=== PATIENT | male | born 1980 | race Caucasian/White ===

== ENCOUNTER 2023-09-28 13:46 | Emergency (ER) | payer OTHER, SELFPAY ==
[2023-09-28 13:59] VITALS: BP 153/104; PULSE 93; RESP 18; TEMP 37.1; O2SAT 95; BMI 38.6
== END 2023-09-28 14:05 | disposition left against medical advice (07) ==
LOC: ER 14:04
PROVIDERS: Emergency Provider Emergency Medicine Emergency Medical Services; PCP Nurse Practitioner Family
DX: Z53.21 Procedure and treatment not carried out due to patient leaving prior to being seen by health care provider (principal)
CPT/HCPCS: 80053; 83605; 83690

== ENCOUNTER 2023-12-29 18:55 | Emergency (ER) | payer OTHER, SELFPAY ==
[2023-12-29 18:58] VITALS: BP 154/95; PULSE 85; TEMP 37.1; O2SAT 97; BMI 39.9
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
--- NOTE | 2023-12-29 19:05 | XR_ITS ---
[address] [address] Patient Name: PLACIDO MAX MRN: [id number] date: 1980 Sex: M Assigned Patient Location: ER Current Patient Location: ER Accession/Order Number: [id number] Exam Date: 12/29/2023 19:28 Report Date: 12/29/2023 20:12 At the request of: ZAYNAB MORENO Procedure: XR chest 2V EXAM: XR chest 2V HISTORY: cough COMPARISON: None. TECHNIQUE: PA and lateral chest FINDINGS: No pneumothorax, pleural effusion or consolidation. Normal heart size. No acute osseous abnormality. XR/XR chest 2V IMPRESSION: No acute cardiopulmonary process. Electronically authenticated by: ALLISON HERR Date: 12/29/2023 20:12
--- NOTE | 2023-12-29 19:26 | ED_ITS ---
HPI - URI/Sore Throat General Chief Complaint: Upper Respiratory Infection Stated Complaint: Upper Respiratory Infection Time Seen by Provider: 12/29/23 18:57 Source: patient History of Present Illness HPI Narrative: Patient is a 43-year-old male who presents to the emergency department for continued upper respiratory symptoms. He states he developed nasal congestion, body aches, cough and chest congestion over 2 weeks ago. He was placed on antibiotics by urgent care with a steroid dose daily for 7 days. He states he felt slightly better for a day and then had a return of his symptoms. He saw urgent care yesterday and was given an albuterol inhaler and a second course of antibiotics. He states he continues to have intermittent fevers in the mornings, as high as 101.0 Fahrenheit. He has no significant sputum production, hemoptysis. He has had diarrhea. No sick contacts in the home. He presents to the ER today because he feels his symptoms have not improved. He does not smoke. Related Data Home Medications ?Medication ?Instructions ?Recorded ?Confirmed albuterol sulfate 90 mcg/actuation 2 puff inhalation Q4H PRN 12/29/23 12/29/23 aerosol inhaler shortness of breath or wheezing amoxicillin 875 mg tablet 875 mg PO BID 12/29/23 12/29/23 sertraline 50 mg tablet 50 mg PO DAILY 12/29/23 12/29/23 tizanidine 4 mg tablet 4 mg PO QPM 12/29/23 12/29/23 Previous Rx's ?Medication ?Instructions ?Recorded fhtwvggvkkpttja-sxzyjdpgfemvitt-KK 10 ml PO Q6H PRN cold symptoms 12/29/23 2 mg-30 mg-10 mg/5 mL oral syrup #200 mL (Bromfed DM) ondansetron 4 mg disintegrating 4 mg PO Q6H PRN nausea and 12/29/23 tablet vomiting #12 tabs Allergies Allergy/AdvReac Type Severity Reaction Status Date / Time No Known Drug Allergies Allergy Verified 09/28/23 14:02 Review of Systems ROS Constitutional Reports: fever; Denies: chills Ears, nose, mouth, and throat Reports: nasal congestion; Denies: throat pain Cardiovascular Denies: chest pain Respiratory Reports: cough; Denies: shortness of breath Gastrointestinal Reports: diarrhea; Denies: nausea or vomiting Musculoskeletal Denies: back pain Integumentary/Breast Denies: rash Neurological Reports: headache Hematologic/Lymphatic Denies: easy bruising or easy bleeding Exam Narrative Exam Narrative: Gen.: Awake, alert, in no distress Head: Normocephalic, atraumatic ENT: Moist mucous membranes, Bilateral TMs are clear Respiratory: No respiratory distress, lungs clear bilaterally; Dry cough noted Cardio: Regular rate and rhythm Extremities: Moves extremities equally Psych: Normal mood and affect Neuro: No focal neuro deficit Skin: Warm, dry, intact Constitutional Vital Signs, click to edit/add: Last Vital Signs Temp 98.8 F 12/29/23 18:58 Pulse 85 12/29/23 18:58 Resp 16 12/29/23 18:58 BP 154/95 H 12/29/23 18:58 Pulse Ox 97 12/29/23 18:58 O2 Del Method Room Air 12/29/23 18:58 Course Vital Signs Vital signs: Vital Signs Temperature 98.8 F 12/29/23 18:58 Pulse Rate 85 12/29/23 18:58 Respiratory Rate 16 12/29/23 18:58 Blood Pressure 154/95 H 12/29/23 18:58 Pulse Oximetry 97 12/29/23 18:58 Oxygen Delivery Method Room Air 12/29/23 18:58 Temperature 98.8 F 12/29/23 18:58 Pulse Rate 85 12/29/23 18:58 Respiratory Rate 16 12/29/23 18:58 Blood Pressure 154/95 H 12/29/23 18:58 Pulse Oximetry 97 12/29/23 18:58 Oxygen Delivery Method Room Air 12/29/23 18:58 MDM - URI/Sore Throat MDM Narrative Medical decision making narrative: Respiratory panel is positive for RSV, chest x-ray is unremarkable and patient was stable vital signs in the ER. He is discharged home with Bromfed-DM and Zofran as needed, he has an albuterol inhaler that was issued yesterday and he was instructed to stop his amoxicillin. Follow-up with PCP and return to the ER if symptoms change or worsen Medical Records Attestation: I reviewed the patient's medical records. Lab Data Attestation: I reviewed the patient's lab results. Labs: Lab Results 12/29/23 Range/Units 19:25 Adenovirus (PCR) Not detected (NOT DETECTE) C. pneumoniae DNA (PCR) Not detected (NOT DETECTE) Coronavirus Type OC43 Not detected (NOT DETECTE) Coronavirus Type HKU1 Not detected (NOT DETECTE) Coronavirus Type 229E Not detected (NOT DETECTE) Coronavirus Type NL63 Not detected (NOT DETECTE) Human Metapneumovir PCR Not detected (NOT DETECTE) M. pneumoniae (PCR) Not detected (NOT DETECTE) Parainfluenza PCR Not detected (NOT DETECTE) Parainfluenza 2 (PCR) Not detected (NOT DETECTE) Parainfluenza 3 (PCR) Not detected (NOT DETECTE) Parainfluenza 4 (PCR) Not detected (NOT DETECTE) RSV (RT-PCR) Detected A* (NOT DETECTE) Entero/Rhino (PCR) Not detected (NOT DETECTE) SARS-CoV-2 (PCR) Not detected (NOT DETECTE) Bordetella pertussis (PCR) Not detected (NOT DETECTE) B parapertussis DNA PCR Not detected (NOT DETECTE) Influenza Type A (PCR) Not detected (NOT DETECTE) Influenza Type B (PCR) Not detected (NOT DETECTE) Imaging Data Chest x-ray: Attestation: I have reviewed the pertinent imaging results. Radiologist's impression: ITS Impressions Chest X-Ray 12/29/23 19:05 IMPRESSION: No acute cardiopulmonary process. Electronically authenticated by: ALLISON HERR Date: 12/29/2023 20:12 Discharge Plan Discharge Stand Alone Forms: Portal Instructions Chief Complaint: Upper Respiratory Infection Clinical Impression: Respiratory syncytial virus (RSV) infection, Upper respiratory infection Patient Disposition: Home, Self-Care Time of Disposition Decision: 20:30 Condition: Good Prescriptions / Home Meds: New nlhxywlslvhklgb-noyynyggr-MK [Bromfed DM] 2-30-10 mg/5 mL syrup 10 ml PO Q6H PRN (Reason: cold symptoms) Qty: 200 0RF ondansetron 4 mg tablet,disintegrating 4 mg PO Q6H PRN (Reason: nausea and vomiting) Qty: 12 0RF No Action albuterol sulfate 90 mcg/actuation HFA aerosol inhaler 2 puff INHALATION Q4H PRN (Reason: shortness of breath or wheezing) amoxicillin 875 mg tablet 875 mg PO BID sertraline 50 mg tablet 50 mg PO DAILY tizanidine 4 mg tablet 4 mg PO QPM Print Language: Cameroonian Instructions: RSV (Respiratory Syncytial Virus) Infection (ED) Referrals: PO GALAVIZ [Primary Care Provider] - 1 week
[2023-12-29 19:33] LABS: Adenovirus NOT DETECTED (NOT DETECTE); Bordetella parapertussis NOT DETECTED (NOT DETECTE); Coronavirus 229E NOT DETECTED (NOT DETECTE); Coronavirus HKU1 NOT DETECTED (NOT DETECTE); Coronavirus NL63 NOT DETECTED (NOT DETECTE); Coronavirus OC43 NOT DETECTED (NOT DETECTE); Human Metapneumovirus NOT DETECTED (NOT DETECTE); Human Rhinovirus/Enterovirus NOT DETECTED (NOT DETECTE); Influenza A NOT DETECTED (NOT DETECTE); Influenza B NOT DETECTED (NOT DETECTE); Mycoplasma pneumoniae NOT DETECTED (NOT DETECTE); Parainfluenza Virus 1 NOT DETECTED (NOT DETECTE); Parainfluenza Virus 2 NOT DETECTED (NOT DETECTE); Parainfluenza Virus 3 NOT DETECTED (NOT DETECTE); Parainfluenza Virus 4 NOT DETECTED (NOT DETECTE); SARS-CoV-2 NOT DETECTED (NOT DETECTE)
[2023-12-29] MEDS: HYDROCODONE BIT/HOMATROP 5 MG/1.5 MG TABLET 1 TAB PO (19:41)
[2023-12-29] MEDS: KETOROLAC TROMETHAMINE 60 MG/2 ML VIAL IM (19:41)
[2023-12-29 20:26] LABS: Respiratory Syncytial Virus DETECTED (NOT DETECTE)
== END 2023-12-29 20:45 | disposition home or self-care (01) ==
PROVIDERS: Physician Assistant; Emergency Provider Emergency Medicine; PCP Nurse Practitioner Family
DX: J06.9 Acute upper respiratory infection, unspecified (principal); B97.4 Respiratory syncytial virus as the cause of diseases classified elsewhere; Z79.899 Other long term (current) drug therapy; Z20.822 Contact with and (suspected) exposure to COVID-19
CPT/HCPCS: 0202U; 71046; 96372; 99285

== ENCOUNTER 2024-07-09 15:10 | Outpatient (OUT) | payer OTHER, SELFPAY ==
--- NOTE | 2024-07-09 15:18 | XR_ITS ---
[facility] [place] [id number] Patient Name: PLACIDO MAX MRN: [id number] date: 1980 Sex: M Assigned Patient Location: [facility] Current Patient Location: [facility] Accession/Order Number: [id number] Exam Date: 07/09/2024 15:22 Report Date: 07/11/2024 06:25 At the request of: PO GALAVIZ Procedure: XR cervical spine 2-3V EXAMINATION: XR cervical spine 2-3V HISTORY: Neck Pain COMPARISON: No relevant comparison available. FINDINGS: BONES: No significant spondylosis, scoliosis, fracture, or visible bony lesion. DISC SPACES: Moderate narrowing C6-C7. PARASPINOUS: Negative. No paraspinous abnormality is seen. OTHER: Negative. XR/XR cervical spine 2-3V IMPRESSION: 1. No acute bone abnormality. 2. Mild-moderate disc space narrowing of C6-C7 suggesting degenerative disc disease. Electronically authenticated by: LYNDA MENDENHALL Date: 07/11/2024 06:25
--- NOTE | 2024-07-09 15:18 | XR_ITS ---
The [address] [address] Patient Name: PLACIDO MAX MRN: [id number] date: 1980 Sex: M Assigned Patient Location: [facility] Current Patient Location: Accession/Order Number: [id number] Exam Date: 07/09/2024 15:22 Report Date: 07/10/2024 14:32 At the request of: PO GALAVIZ Procedure: XR lumbar spine 2-3V EXAMINATION: XR lumbar spine 2-3V HISTORY: Back Pain COMPARISON: No relevant comparison available. FINDINGS: BONES: Normal. No significant spondylosis, scoliosis, fracture, or visible bony lesion. DISC SPACES: Normal. No significant disc height narrowing, subluxation, or endplate abnormality. PARASPINOUS: Negative. No paraspinous abnormality is seen. OTHER: Negative. XR/XR lumbar spine 2-3V IMPRESSION: No acute radiographic abnormality Electronically authenticated by: THEA JAMES Date: 07/10/2024 14:32
--- OUTSIDE RECORDS SUMMARY | 2024-07-09 15:27 | XMS_ITS | CCD ---
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 17:00-0500 Diastolic blood pressure 66 mm[Hg] Ammon Mushtaq [facility] 09-28-2023 17:00-0500 Heart rate 70 /min Ammon Mushtaq [facility] 09-28-2023 17:00-0500 Mean blood pressure 82 mm[Hg] Ammon Mushtaq [facility] 09-28-2023 17:00-0500 Respiratory rate 17 /min Ammon Mushtaq [facility] 09-28-2023 17:00-0500 SaO2% (BldA) [Mass fraction] 94 % Ammon Mushtaq [facility] 09-28-2023 17:00-0500 Systolic blood pressure 113 mm[Hg] Ammon Mushtaq [facility] 09-28-2023 16:00-0500 Diastolic blood pressure 67 mm[Hg] Ammon Mushtaq [facility] 09-28-2023 16:00-0500 Heart rate 82 /min Ammon Mushtaq [facility] 09-28-2023 16:00-0500 Mean blood pressure 85 mm[Hg] Ammon Landin [facility] 09-28-2023 16:00-0500 Respiratory rate 15 /min Ammon Landin [facility] 09-28-2023 16:00-0500 SaO2% (BldA) [Mass fraction] 93 % Ammon Landin [facility] 09-28-2023 16:00-0500 Systolic blood pressure 121 mm[Hg] Ammon Landin [facility] 09-28-2023 15:30-0500 Body temperature 98.78 [degF] Ammon Landin [facility] 09-28-2023 14:50-0500 Body temperature 98.96 [degF] Ammon Landin [facility] 09-28-2023 14:50-0500 Heart rate 91 /min Ammon Landin [facility] Encounters Encounter Date Encounter Type Care Provider Facility Start: 01-02-2024 End: 01-02-2024 ambulatory Shanta Galaviz Facility:[facility] Start: 01-02-2024 Non-patient / Non-visit AREA DEVELOPMENT CONSULTANT-C Shanta Galaviz Work Phone: [facility] Work Phone: Start: 01-02-2024 End: 01-02-2024 Admission to same day surgery center AREA DEVELOPMENT CONSULTANT-C Shanta Galaviz Work Phone: [facility] Work Phone: Start: 01-02-2024 End: 01-02-2024 ambulatory AREA DEVELOPMENT CONSULTANT-C Shanta Galaviz Work Phone: [facility] Work Phone: Start: 12-05-2023 End: 12-05-2023 ambulatory [facility] Work Phone: Start: 12-05-2023 End: 12-05-2023 Patient encounter procedure [facility] Work Phone: Start: 09-28-2023 End: 09-28-2023 Emergency department patient visit Ammon FaithGinny Landin [facility] Start: 07-31-2022 Encounter for genera l adult medical examination without abnormal findings SHANTA GALAVIZ [facility] Start: 07-26-2022 End: 07-27-2022 ambulatory SHANTA GALAVIZ Facility:[facility] Start: 07-26-2022 End: 07-27-2022 Encounter for general adult medical examination without abnormal findings SHANTA GALAVIZ Facility:[facility] Start: 01-26-2022 End: 01-26-[address] CATRACHO SOL Facility:[facility] Start: 03-01-2019 End: 03-01-2019 Emergency department patient visit [facility] Start: 06-08-2017 End: 06-08-2017 Emergency department patient visit NO FAMILY DOCTOR NO FAMILY DOCTOR Facility:[facility] Ze-gen [facility] Start: 06-08-2017 Ambulatory Facility:[id number] Start: 03-31-2017 End: 04-01-2017 Emergency department patient visit NO FAMILY DOCTOR NO FAMILY DOCTOR Facility:[facility] Procedures Date Procedure Procedure Detail Performing Clinician Start: 01-02-2024 Colonoscopy AREA DEVELOPMENT CONSULTANT-C Jan Galaviz Work Phone: Start: 03-01-2019 Radiologic exam ches t 2 views [facility] H/O: surgery 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 Plan of Treatment Date Care Activity Detail Author Start: 01-02-2024 [facility] Patient Education Hemorrhoids (D C) Diverticulosis (DC) Colon Polypectomy (DC) [facility] Work Phone: Payers Date Payer Category Payer Self-pay 2023 Self-pay [id number] 1980 Unknown [id number] 1980 Unknown [id number] 1980 Unknown [id number] 1957 Unknown [id number] Self-pay [id number] Unknown [id number] Unknown [id number] Social History Date Type Detail Facility Start: 09-28-2023 End: 01-02-2024 Tobacco smoking status Ex-smoker (finding) [facility] Sex Assigned At Male [facility] Start: 1980 Sex Assigned At Male Rosas [facility] Goals Date Patient Goal Desired Activity /State Functional Status Date Assessment Result Facility 09-28-2023 Functional Status N/A [facility] Procedure note 01-02-2024 Note Date & Type Note Facility 01-02-2024 Procedure note [facility] Hospital Discharge instructions 09-28-2023 Note Date & [...] treated at home. Treatment may include: Taking cqxp-aaw-rswnxxo pain medicines. Following a clear liquid diet. [...] Follow these instructions at home: Medicines Take dveh-zuj-uujxcnf and prescription medicines only as told by [...] provider. Document Revised: 06/16/2020 Document Reviewed: 06/16/2020 [employer] Patient Education 2022 [employer]. Follow Up Care 09/28/2023 14:38:13 With:Clara Causey Address: [address], [address] [address]- [phone] Business (1) When:10/01/2023 17:23:34 Comments:Follow-up to discuss your diverticulitis and obtain a colonoscopy. With:SHANTA GALAVIZ Address: [address] [place] [address]- [phone] Business (1) When:10/01/2023 17:23:25 Comments:Call the office [...] weakness, or any new or worsening symptoms. [facility] Evaluation + Plan note 09-28-2023 Note Date & Type Note Facility 09-28-2023 Evaluation + Plan note Extrac cordelia from: Title:ED Note Author:Ammon Landin DO Date: Diverticulitis (K57.92: Dive rticulitis of intestine, part unspecified, without perforation or abscess without bleeding) Ordered: acetaminophen-oxycodone, 1 tab(s), Oral, q6hr Pain 8-10 for 3 day(s), 12 tab(s), Refill(s) 0, [facility]/pharmacy #[id number], 177, cm, 09/28/23 14:59:00 EST, Height/Length Dosing, 125, kg, 09/28/23 14:59:00 EST, Weight Dosing Orders: amoxicillin-clavulanate, 1 tab(s), Oral, q8hr for 10 day(s), 30 tab(s), Refill(s) 0, [id number], 177, cm, 09/28/23 14:59:00 EST, Height/Length Dosing, 125, kg, 09/28/23 14:59:00 EST, Weight Dosing docusate, 100 mg = 1 cap(s), Oral, BID, X 10 day(s), # 20 cap(s), Refills(s) 0, Pharmacy: [facility]/pharmacy #[id number], 177, cm, 09/28/23 14:59:00 EST, Height/Length [...] Nausea/Vomiting, # 12 tab(s), Refills(s) 0, Pharmacy: [facility]/pharmacy #[id number], 177, cm, 09/28/23 14:59:00 EST, Height/Length [...] Function Panel Lipase Level Saline Lock Insert [facility] Evaluation note Note Date & Type Note Facility Evaluation note Diagnosis Onset Date Abdominal pain acute [facility] Work Phone: History and physical note Note Date & Type Note Facility History and physical note Note Date/Time January 02, 2024 11:29am [facility] [address] [place] [address] Gastroenterology H&P Signed Patient: William Jarrett MR#: [id number] : 1980 Acct:[id number] Age/Sex: 43 / M Adm Date: 4 Loc: Room: Type: [facility] Attending Dr: Fortino Gonzales MD Copies to: MD Shanta Estevze CNP~ Date of Service: 01/02/2024 HISTORY & PHYSICAL: Patient's history with special attention to the cardiovascular, pulmonary systems and the current problem was reviewed with the patient immediately prior to the procedure. Present medications and doses reviewed in the EMR. Allergies and pertinent laboratory tests were also reviewedat this time in the EMR. The physical examination, as below, was then performed. Indication, assessment and HPI: 43-year-old man with history of diverticulitis here for diagnostic colonoscopy Family history of GI malignancy? No PHYSICAL EXAMINATION General appearance: Pleasant, NAD Skin: No jaundice Head: NC/AT Eyes: Anicteric Neck: Supple Lungs: Normal respiratory effort, no use of accessory muscles Abdomen: Soft, nondistended Neuro: Ox3. REVIEW OF SYSTEMS Constitutional: Denies malaise, fevers Cardiovascular: Denies chest pain, palpitations Respiratory: Denies shortness of breath, wheezing Gastrointestinal: As per HPI Genitourinary: Denies dysuria, polyuria Musculoskeletal: Denies joint swelling, joint stiffness Neurological: Denies confusion, numbness, tingling Endocrine: Denies fatigue Written informed consent obtained from the patient. Risks (including but not limited to perforation, infection, bloating, bleeding, need for emergent surgeryand loss of life), benefits and alternatives explained and questions answered. The patient verbalized understanding. Based on history patient is an appropriate candidate for the procedure. Fortino Gonzales M.D. Documented By: Fortino Gonzales MD 01/02/241126 Signed By: <Electronically signed by Fortino Gonzales MD> 01/02/[address] [facility] Work Phone: Hospital course Narrative Note Date & Type Note Facility Hospital course Narrative No data available for this section [facility] Progress note Note Date & Type Note Facility Progress note No data available for this section [facility] Summary Purpose Family History No Family History Records Found Relationship Condition Age at Onset Recorded Date/T katherin father Alive and well Unknown Not Specified Alive and well Unknown grandparent Diabetes mellitus Unknown Malignant neoplasm Unknown Advance Directives No Advanced Directives Records Found Advance Directive Response Recorded Date/ Time Advance Directives No December 04 8:52am Chief Complaint and Reason for Visit Chief Complaint DIVERTICLITIS/SEEN I [facility] Reason for Visit Abdominal pain Chief Complaint DIVERTICLITIS/SEEN I [facility] ER abdominal pain, abnormal ct scan abdominal pain, abnormal ct scan Reason for Visit Abdominal pain Additional Source Comments (unrecognized sect ion and content) No Status Records FoundNo Status Records FoundNo Status Records FoundNo Status Records FoundNo Status Records FoundNo Status Records Found INFORMATION SOURCE (unrecogn ized section and content) DATE CREATED AUTHOR 03/14/2018 [facility] DATE CREATED AUTHOR AUTHOR'S ORGANIZ ATION 03/14/2018 [facility] DATE CREATED AUTHOR AUTHOR'S ORGANIZ ATION 03/01/[address] [facility] DATE CREATED AUTHOR AUTHOR'S ORGANIZ ATION 03/21/2019 [facility] DATE CREATED AUTHOR AUTHOR'S ORGANIZ ATION 07/31/2022 [facility] DATE CREATED AUTHOR AUTHOR'S ORGANIZ ATION 01/29/2024 [facility] ysician Group Patient Care team informatio n (unrecognized section and content) Team Status: Active Member Role Status Dates PHYSICIAN NO FAMILY Primary Care Provider Active Team Status: Inactive Member Role Status Dates PHYSICIAN NO FAMILY Primary Care Provider Active Start: December 05, 2023 End: December 05, 2023 Mendoza Fuchs APRN Attending Provider Active Start: December 05, 2023 End: December 05, 2023 Team Status: Active Member Role Status Dates MERLE Calderón Primary Care Provider Active Team Status: Inactive Member Role Status Dates Fortino Gonzales MD Attending Provider Active Start: January 02, 2024 End: January 02, 2024 MERLE Calderón Primary Care Provider Active Start: January 02, 2024 End: January 02, 2024 Team Status: Active Member Role Status Dates Fortino Gonzales MD Attending Provider, Other Provider Active Start: January 02, 2024 MERLE Calderón Primary Care Provider Active Start: January 02, 2024 Goals (unrecognized section and content) Goals may [...] BE BASED ON THE PRIMARY CLINICAL RECORDS. [employer] provides no warranty or guarantee of the accuracy or completeness of information in this document.
== END 2024-07-09 15:11 | disposition home or self-care (01) ==
LOC: RAD 15:12
PROVIDERS: PCP Nurse Practitioner Family; Visit Provider Nurse Practitioner Family
DX: M54.9 Dorsalgia, unspecified (principal); M54.2 Cervicalgia
CPT/HCPCS: 72040; 72100

== ENCOUNTER 2024-07-30 13:56 | Outpatient (OUT) | payer OTHER, SELFPAY ==
--- NOTE | 2024-07-30 15:36 | P.CN_ITS ---
Consult Note: HPI Data of Consult Patient: new to practice Consult date: 07/30/24 Requesting Physician: Marichuy Resendiz MD Primary Care Provider: PO GALAVIZ Consult Narrative Reason for consult: neck and arm pain, low back and leg pain Narrative: 44yom who presents for evaluation. notes several months of worsening neck pain with radiation into bilateral upper extremities, as well as low back into bilateral lower extremities. xrays of cervical and lumbar spine reviewed, show multilevel degenerative changes. has continued in chiropractic therapy for >6 months, without any lasting benefit. uses otc pain meds as needed. cc:: CC: Marichuy Resendiz MD Review of Systems ROS Status of ROS 10 or more systems reviewed and unremark able except as noted in history and below Meds Home Medications and Allergies Home Medications ?Medication ?Instructions ?Recorded ?Confirmed ?Type ergocalciferol (vitamin D2) 1,250 1,250 mcg PO DAILY 07/30/24 07/30/24 History mcg (50,000 unit) capsule (Vitamin D2) folic acid 1 mg tablet 1,000 mcg PO DAILY 07/30/24 07/30/24 History lactobacillus combo no.11 15 1 cap PO DAILY 07/30/24 07/30/24 History billion cell sprinkle capsule (Probiotic) multivitamin 1 tab PO DAILY 07/30/24 07/30/24 History phentermine 37.5 mg capsule 37.5 mg PO DAILY 07/30/24 07/30/24 History Allergies Allergy/AdvReac Type Severity Reaction Status Date / Time No Known Drug Allergies Allergy Verified 09/28/23 14:02 Exam Narrative Exam Narrative: Psych-alert and oriented x 3.? Attentive and appropriate, constitutionally normal, displays normal mood and affect per situation.? There are no obvious deficits in memory, reasoning, or intellect.? Skin-no obvious rashes, bruising, or erythema noted to the patient's area of pain.? Extremities-upper extremities are warm with minimal edema and palpable pulses. Cervical- tenderness to palpation noted in the cervical spine and paraspinal musculature.? Pain is elicited with flexion, extension, and lateral rotation of the cervical spine.? Range of motion is diminished due to pain. Facet loading maneuvers are positive.? Strength-unremarkable and within normal limits with the exception to the bilateral biceps. Sensory-no notable sensory deficits in the bilateral upper extremities to touch or pinprick with the exception to decreased sensation to the bilateral C4, 5 dermatomal distribution.? Lumbar-tenderness to palpation noted in the lumbar spine and paraspinal musculature. Pain is not elicited with flexion, extension, and lateral rotation of the lumbar spine. Range of motion is not diminished with these motions. Facet loading maneuvers are positive. Strength-noted to be unremarkable with the exception of decreased strength rated at 4 out of 5 in bilateral quadriceps femoris. Sensory-no notable sensory deficits in the bilateral lower extremities to touch or pinprick in all dermatomal distributions with the exception to decreased sensation to the bilateral L3, 4 dermatomal distribution Coordination remains intact.? Gait remains non-antalgic. Assessment and Plan Assessment and Plan (1) Lumbar stenosis with neurogenic claudication: (2) Cervical stenosis of spine: Plan 44yom who presents for evaluation. failed conservative measures, as noted. imaging reviewed, as noted. given symptoms and imaging, prudent to obtain advanced imaging for further info, including cervical and lumbar mris without contrast. he is in agreement. meds reviewed, no changes. follow up after imaging.
== END 2024-07-30 13:57 | disposition home or self-care (01) ==
PROVIDERS: PCP Nurse Practitioner Family; Visit Provider Anesthesiology
DX: M48.062 Spinal stenosis, lumbar region with neurogenic claudication (principal); M48.02 Spinal stenosis, cervical region
CPT/HCPCS: G0463

== ENCOUNTER 2024-11-12 08:45 | Outpatient (OUT) | payer OTHER, SELFPAY ==
--- NOTE | 2024-11-12 08:52 | MR_ITS ---
[address] [address] Patient Name: PLACIDO MAX MRN: [id number] date: 1980 Sex: M Assigned Patient Location: MRI Current Patient Location: MRI Accession/Order Number: [id number] Exam Date: 11/12/2024 18:40 Report Date: 11/12/2024 18:47 At the request of: BIENVENIDO PERDOMO MD Procedure: MR cervical spine wo con MR cervical spine wo con 11/12/2024 9:38 AM SIGNS AND SYMPTOMS: Chronic neck pain with radiculopathy radiating into upper extremities PROTOCOL: Multiplanar multisequence MR images of the cervical spine were obtained without IV contrast COMPARISON: 07/11/2024 FINDINGS: The bones of the cervical spine are in anatomic alignment. There is preservation of vertebral body heights. There is disc desiccation and mild intervertebral disc height loss at C4-C5, C5-C6, C6-C7, and C7-T1.. The marrow signal is within normal limits. The cord is normal in signal. No epidural or paraspinous fluid collection is appreciated. The visualized paraspinous soft tissues are within normal limits. The prevertebral soft tissues are within normal limits. At C2-C3: There is a normal disc, central canal, and neural foramen. At C3-C4: There is a normal disc, central canal, and neural foramen. At C4-C5: There is right-sided facet hypertrophy with uncovertebral joint spurring contributing to mild right neural foraminal narrowing without spinal canal narrowing. At C5-C6: A broad-based disc bulge with facet hypertrophy and uncovertebral joint spurring contributing to moderate right and mild left neural foraminal narrowing with mild spinal canal narrowing. At C6-C7: There is a broad-based disc bulge with uncovertebral joint spurring left greater than right. There is facet hypertrophy. There is moderate to severe left and mild right neural foraminal narrowing. There is mild spinal canal narrowing. At C7-T1: There is a normal disc, central canal, and neural foramen. MR/MR cervical spine wo con IMPRESSION: No cord compression or cord signal abnormality. At C4-C5: There is right-sided facet hypertrophy with uncovertebral joint spurring contributing to mild right neural foraminal narrowing without spinal canal narrowing. At C5-C6: A broad-based disc bulge with facet hypertrophy and uncovertebral joint spurring contributing to moderate right and mild left neural foraminal narrowing with mild spinal canal narrowing. At C6-C7: There is a broad-based disc bulge with uncovertebral joint spurring left greater than right. There is facet hypertrophy. There is moderate to severe left and mild right neural foraminal narrowing. There is mild spinal canal narrowing. Impression dictated by: Devan Bloom M.D.11/12/2024 6:47 PM Dictation Location: [place] [address] Electronically authenticated by: [id number] Y Date: 11/12/2024 18:47
--- OUTSIDE RECORDS SUMMARY | 2024-11-12 09:05 | XMS_ITS | CCD ---
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 Evaluation note Diagnosis Onset Date Abdominal pain acute [facility] Work Phone: History and physical note Note Date & Type Note Facility History and physical note Note Date/Time January 02, 2024 11:29am [facility] [address] [place] [address] Gastroenterology H&P Signed Patient: William Jarrett MR#: [id number] : 1980 Acct:[id number] Age/Sex: 43 / M Adm Date: 4 Loc: Room: Type: [facility] Attending Dr: Fortino Gonzales MD Copies to: MD Shanta Estevez CNP~ Date of Service: 01/02/2024 HISTORY & [...] By: <Electronically signed by Fortino Gonzales MD> 01/02/241128 [facility] Work Phone: Hospital course Narrative Note Date & Type Note Facility Hospital course Narrative No data available for this section [facility] Progress note Note Date & Type Note Facility Progress note No data available for this section [facility] Summary Purpose Family History No [...] for Visit Chief Complaint DIVERTICLITIS/SEEN I N [facility] Reason for Visit Abdominal pain Chief Complaint DIVERTICLITIS/SEEN I N [facility] abdominal pain, abnormal ct scan abdominal pain, abnormal ct scan Reason for Visit Abdominal pain Additional Source Comments (unrecognized sect ion and content) No Status Records FoundNo Status Records FoundNo Status Records FoundNo Status Records FoundNo Status Records FoundNo Status Records FoundNo Status Records Found INFORMATION SOURCE (unrecogn ized section and content) DATE CREATED AUTHOR 03/14/2018 [facility] DATE CREATED AUTHOR AUTHOR'S ORGANIZ ATION 03/14/2018 [facility] DATE CREATED AUTHOR AUTHOR'S ORGANIZ ATION 03/01/2019 [facility] DATE CREATED AUTHOR AUTHOR'S ORGANIZ ATION 03/21/2019 [facility] DATE CREATED AUTHOR AUTHOR'S ORGANIZ ATION 07/31/2022 [facility] DATE CREATED AUTHOR AUTHOR'S ORGANIZ ATION 01/29/2024 [facility] DATE CREATED AUTHOR AUTHOR'S ORGANIZ ATION 08/07/2024 [facility] Patient Care team informatio n (unrecognized section [...] BE BASED ON THE PRIMARY CLINICAL RECORDS. [employer] provides no warranty or guarantee of the accuracy or completeness of information in this document.
== END 2024-11-12 08:46 | disposition home or self-care (01) ==
LOC: MRI 08:45
PROVIDERS: PCP Nurse Practitioner Family; Visit Provider Anesthesiology
DX: M48.02 Spinal stenosis, cervical region (principal); M50.321 Other cervical disc degeneration at C4-C5 level; M50.322 Other cervical disc degeneration at C5-C6 level; M50.323 Other cervical disc degeneration at C6-C7 level
CPT/HCPCS: 72141

== ENCOUNTER 2024-11-21 08:41 | Outpatient (OUT) | payer OTHER, SELFPAY ==
--- NOTE | 2024-11-21 09:15 | P.CN_ITS ---
Consult Note: HPI Data of Consult Patient: known to practice within the last 3 years Requesting Physician: Tosin Stewart NP Primary Care Provider: PO GALAVIZ Consult Narrative Reason for consult: f/u Narrative: William Jarrett a pleasant 44 year old male presents for evaluation of chronic neck and low back pain. longstanding hx of neck and low back pain greater than 12 months without response to tylenol, motrin, heat, ice, chiropractor, stretching, HEP greater than 6 weeks. cannot attend formal PT due to work schedule. Recently underwent cervical MRI which reveals multilevel stenosis, facet arthropathy, and mild degenerative disc. Pain today 8/10 sharp, increasing with standing, walking, twisting, bending, and activity. currently utilizes ibuprofen and THC balm with mild benefit. cc:: CC: Tosin Stewart NP Review of Systems ROS Status of ROS 10 or more systems reviewed and unremark able except as noted in history and below Musculoskeletal Reports: back pain, neck pain and extremity pain Meds Home Medications and Allergies Home Medications ?Medication ?Instructions ?Recorded ?Confirmed ?Type ergocalciferol (vitamin D2) 1,250 1,250 mcg PO DAILY 07/30/24 07/30/24 History mcg (50,000 unit) capsule (Vitamin D2) folic acid 1 mg tablet 1,000 mcg PO DAILY 07/30/24 07/30/24 History lactobacillus combo no.11 15 1 cap PO DAILY 07/30/24 07/30/24 History billion cell sprinkle capsule (Probiotic) multivitamin 1 tab PO DAILY 07/30/24 07/30/24 History phentermine 37.5 mg capsule 37.5 mg PO DAILY 07/30/24 07/30/24 History Allergies Allergy/AdvReac Type Severity Reaction Status Date / Time No Known Drug Allergies Allergy Verified 09/28/23 14:02 Exam Constitutional Documenting provider has reviewed patient's vital signs: yes Common normals: no apparent distress, oriented x3, healthy appearing, alert and well nourished General appearance: cooperative HENMT Common normals: normocephalic, hearing grossly normal bilaterally and moist oral mucous membranes Head and scalp: normocephalic Eye Common normals: PERRL Pupil: PERRL Neck & C-Spine Common normals: full ROM General: normal visual inspection Cervical spine: cervical ROM abnormal, pain with cervical ROM and cervical spine tenderness Other: positive spurlings decreased sensation bilateral C5,6,7 strength 4/5 in BUE Chest Common normals: inspection of chest normal Respiratory Common normals: normal respiratory effort, no retractions and no use of accessory muscles Back & Pelvis Lumbar spine/lower back: ROM limited, pain with ROM, lumbar spinal tenderness, straight leg raise positive right and straight leg raise positive left Other: decreased sensation bilateral L4,5,S1 strength 4/5 in BLE positive facet loading Neuro Common normals: oriented x3, CN's II-XII intact bilaterally, moves all extremities, no focal motor deficits, no sensory deficits noted and deep tendon reflexes 2+ bilaterally Sensorium/orientation: alert Motor exam: strength 5/5 throughout and no movement abnormalities noted Psych Common normals: mental status grossly normal, thought process normal, c ooperative, affect normal, speech normal and activity/motor behavior normal Speech: normal speech Thought process: normal thought process Results Additional Findings Additional findings: If on a controlled substance or opioids, I have checked an [place] report on this patient and there are no aberrancies noted in the prescribing history.??If on a controlled substance or opioid a drug screen was completed and reviewed within the last year, and if there has not been a drug screen completed we ordered one today to monitor higher risk, state monitored pain medication use. As part of providing excellent, safe, comprehensive care, the following was completed at our patient's visit: 1. A medication reconciliation and review to ensure accurate knowledge of current/active medications, including asking our patients to inform us about any pbch-hbb-pllrexs medications or herbal remedies/nutritional supplements/alternative remedies. 2. A review to specifically ensure our patients have had annual screening for screening for depression, screening for tobacco use, and screening for unhealthy alcohol use. For concerning screenings had a discussion with the patient, provided patient education, and recommended follow-up with primary care provider when appropriate. If patient noted with a risk of falling, they received education on strength, gait, and balance training to prevent future risk of falling. Portions of this note may have been carried over from the previous visit and updated as appropriate. Please note this office utilizes paper charting in addition to the electronic medical record. A list of current medications, vitals, and PMH is available there as the clinical staff outside of myself do not have access to [employer] charting during the clinic day operations. As part of providing quality comprehensive care the current medications, vitals, and PMH were reviewed in the paper chart. Assessment and Plan Assessment and Plan (1) Cervical stenosis of spine: (2) Cervical radiculopathy: (3) Lumbar stenosis with neurogenic claudication: Plan bilateral C6-7 TFESI under fluoroscopy for cervical stenosis with radiculopathy unresponsive to HEP greater than 6 weeks, heat, ice, tylenol, nsaids, and chiropractor PT referral for lumbar stenosis with NC, to provide HEP for pt to complete 2x/week for 6 weeks as tolerated continue current medications f/u 2 weeks after injection
== END 2024-11-21 08:42 | disposition home or self-care (01) ==
LOC: PM 08:42
PROVIDERS: PCP Nurse Practitioner Family; Visit Provider Nurse Practitioner
DX: M48.02 Spinal stenosis, cervical region (principal); M54.12 Radiculopathy, cervical region; M48.062 Spinal stenosis, lumbar region with neurogenic claudication
CPT/HCPCS: G0463